=== PATIENT | male | born 1960 | race Caucasian/White ===

== ENCOUNTER 2022-03-22 17:41 | Emergency (ER) | payer OTHER, SELFPAY ==
[2022-03-22] VITALS (27 sets, daily range): BP systolic 103–134; BP diastolic 59–89; PULSE 68–122; RESP 12–22; TEMP 36.5; O2SAT 90–100
--- NOTE | ~2022-03-22 | MR_ITS ---
EXAMINATION: MR brain/brain stem wo/w con DATE: 03/26/2022 09:30 INDICATION: Leg weakness. Transient ischemic attack. TECHNIQUE: Magnetic resonance imaging (MRI) of the brain and brainstem was performed without and with 17 mL MultiHance intravenous contrast. COMPARISON: Head CT 03/22/2022 FINDINGS: There is an old infarct in right cerebellum. There is an old infarct in right parietal occi pital region. There is a small subacute infarct in right temporal occipital region with contrast enha ncement. There is no intracranial hemorrhage, acute infarction, or abnormal intracranial mass lesion. The ventricles are normal in size. There is mild mucosal thickening in the paranasal sinuses. The or bits are normal. The mastoid air cells are normal. IMPRESSION: 1. Small subacute infarct in right temporal occipital region. 2. Old infarcts in the right cerebellum and right parietal occipital region. Reviewed, dictated and finalized at location B.
--- NOTE | ~2022-03-22 | CT_ITS ---
Patient Name: Patient Name MR#: Patient MRN Accession#: Accession Numbers EXAMINATION: CTA brain carotid DATE: 03/22/2022 18:57 INDICATION: leg weakness TECHNIQUE: Computed tomographic angiography (CTA) of the head was performed without and with 100 mL O mnipaque-350 intravenous contrast. CTA of the neck was performed with intravenous contrast. The dose- length product was 1727.36 mGy-cm. Maximum intensity projection and volume rendered 3D-reconstruction s were created by the technologist on a separate workstation. COMPARISON: None. FINDINGS: CTA NECK: Aortic arch and proximal great vessels: Mild atherosclerotic calcifications at the visualized aortic arch and proximal great vessels, including mild stenoses at the origins of the bilateral carotids and right vertebral, and severe stenosis caused by calcified and noncalcified plaque at the origin of th e left vertebral artery. Right common carotid, carotid bifurcation, and internal carotid artery: Calcified and noncalcified pl aque at the carotid bulb and proximal ICA as well as focally within the distal ICA.There is 15%% sten osis of the proximal right internal carotid artery relative to normal distal artery lumen diameter (N ASCET criteria). Left common carotid, carotid bifurcation, and internal carotid artery: Calcified and noncalcified cruz que at the carotid bifurcation and focally in the distal ICA.There is 0% stenosis of the proximal lef t internal carotid artery relative to normal distal artery lumen diameter (NASCET criteria). Vertebral arteries: Severe left vertebral artery stenosis as above. Right vertebral artery is dominan t. Atherosclerotic calcifications of the intradural portions of the left and right vertebral arteries . Other findings: Heavy coronary artery calcification. CTA HEAD: Atherosclerotic calcifications in the distal internal carotid arteries and pronounced calcified calci fications in the bilateral carotid siphons, causing likely severe right and moderate left stenoses. S cattered vertebrobasilar calcifications. No large vessel occlusion, aneurysm, high flow vascular malformation, nidus or extravasation. No acute large vessel infarct, intracranial hemorrhage, mass, or hydrocephalus. CT BRAIN: No acute large vessel infarct. Old right parieto-occipital, possibly watershed territory, and focal r ight cerebellar infarcts. Mild chronic white matter change. No acute intracranial hemorrhage, extra-a xial fluid collection, mass lesion or mass effect, or hydrocephalus. IMPRESSION: 1. CTA head is negative for large vessel occlusion. 2. Heavy calcified plaque in the bilateral carotid siphons, causing likely severe right and moderate left distal internal carotid artery stenoses. 3. Old right parietal occipital and right cerebellar infarcts. 4. Severe left vertebral artery origin stenosis. Reviewed, dictated and finalized at location K. IMPRESSION: 1. CTA head is negative for large vessel occlusion. 2. Heavy calcified plaque in the bilateral carotid siphons, causing likely sev ere right and moderate left distal internal carotid artery stenoses. 3. Old right parietal occipital and right cerebellar infarcts. 4. Severe left vertebral artery origin stenosis.
--- NOTE | 2022-03-22 17:53 | ECG_ITS ---
Measurements Intervals [place] Rate: 111 P: 46 ME: 96 QRS: 57 QRSD: 97 T: 63 QT: 342 QTc: 465 Interpretive Statements SINUS TACHYCARDIA WITH SHORT ME INTERVAL MINIMAL Q WAVES- INFERIOR LEADS BORDERLINE ST-T WAVE ABNORMALITY- HIGH LATERAL LEADS ABNORMAL ECG Electronically Signed On 03-22-2022 20:34:43 CDT by El Faria D.O.
--- NOTE | 2022-03-22 18:07 | ED.NEUROSD ---
HPI - Neuro Symptoms/Deficit General Chief Complaint: Neuro Symptoms/Deficit <Sakina Mondragon MD - Last Filed: 03/22/22 18:46> Stated Complaint: mini strokes <Sakina Mondragon MD - Last Filed: 03/22/22 18:46> Time Seen by Provider: 03/22/22 17:58 <Sakina Mondragon MD - Last Filed: 03/22/22 18:46> History of Present Illness HPI Narrative: pt comes in with leg weakness both legs for the last 2 weeks on/off and has seen his work doc in the office in [facility] b/c started after bending over doing something at work adn passed out then legs weak/numbness then got better so ekg and has had extensive labs done for cardiac cbc, cmp, tsh and ekg all done and i reviewed his has all wnl and to have ct head next week but still having episodes on/off no defined trigger can be laying, sitting and just comes on and can't move legs then few minutes later movement returns adn no loss bowel or bladder function and always legs not speech or arms adn sometimes lt headed but no loc no hebert/cp/sob/f/uri/nv/d/urine chagnes or abd pain and NIH now 0 <Sakina Mondragon MD - Last Filed: 03/22/22 18:46> Related Data Home Medications: Home Medications Medication Instructions Recorded Confirmed lisinopril 10 mg PO ONCE 03/22/22 03/22/22 <Sakina Mondragon MD - Last Filed: 03/22/22 18:46> Allergies/Adverse Reactions: Allergies Allergy/AdvReac Type Severity Reaction Status Date / Time No Known Allergies Allergy Verified 03/22/22 18:11 <Sakina Mondragon MD - Last Filed: 03/22/22 18:46> Review of Systems Review of Systems: CONSTITUTIONAL: Denies fever, chills, or sweats. EYES: Denies visual changes, redness, or discharge. ENT: Denies rhinorrhea, congestion, sore throat, or otalgia. CARDIOVASCULAR: Denies chest pain, palpitations, or edema. RESPIRATORY: Denies cough or dyspnea. GASTROINTESTINAL: Denies abdominal pain, nausea, vomiting, or diarrhea. GENITOURINARY: Denies dysuria or hematuria. SKIN: Denies rash or itching. MUSCULOSKELETAL: Denies back pain, joint pain, or myalgia. NEUROLOGIC: Denies headache, intermittent numbness/weakness b/l le for last 2 weeks PSYCHIATRIC: Denies anxiety or depression. <Sakina Mondragon MD - Last Filed: 03/22/22 18:46> Exam Narrative: APPEARANCE: Well appearing, no pain in distress, well-nourished. Head normocephalic atraumtaic. EYES: PERRLA/EOMI, conjunctivae very clear. NOSE: Normal no drainage EARS:TMS clear Lavelle Bah, with good light reflex. THROAT: Pharynx clear, no exudate. NECK: Supple. No adenopathy, no masses. RESPIRATORY: Airway patent, repsirations nonlabored. Clear to auscultation bilaterally, no rales, rhonchi, wheezing. CARDIOVASCULAR: Regular rate and rhythm without murmurs rubs or gallops. ABDOMINAL: Soft, nontender, nondistended, no hepatosplenomegally MUSCULOSKELETAl: Moves all extremities. Strenght/ROM intact, No edema, No calf tenderness. NEURO: Alert. Cranial nerves II through XII intact. Good gait. Good coordination SKIN:: Warm, dry. Normal Color PSYCHIATRIC: Normal affect/mood, normal interaction with parents. <Sakina Mondragon MD - Last Filed: 03/22/22 18:46> Course Course Emergency Course: signing over pt to the night doc Dr Love <Sakina Mondragon MD - Last Filed: 03/22/22 18:46> 61-year-old male presents here with intermittent episodes of left-sided weakness/difficulty with speech, and leg weakness, that resolved in about 15 minutes, had 1 episode before he came here, signed out to me pending CTA. This shows some chronic infarcts, stenosis in vertebral and carotid arteries without anything critical, patient is currently NIH stroke scale of 0, however given these TIAs I did feel patient would benefit from admission, aspirin and Plavix and atorvastatin are ordered, however as we do not have neurology at this hospital, I did discuss case with neurology over at [facility] will accept the patient. <Amena Love MD - Last Filed: 03/23
[2022-03-22 18:35] LABS: Anion Gap 10 mmol/L (8-16); Blood Urea Nitrogen 21 mg/dL (9-20); Calcium 9.1 mg/dL (8.4-10.2); Carbon Dioxide 21 mmol/L (22-30); Chloride 108 mmol/L (98-107); Estimated CRCL calculation 62 ml/min; Estimated Glomerular Filt Rate > 60; Glucose 154 mg/dL (65-110); Potassium 4.5 mmol/L (3.4-5.0); Sodium 139 mmol/L (137-145)
--- NOTE | 2022-03-22 19:18 | PC.NURSE ---
Report received from Stacey RN. This nurse assumed care of patient at this time.
[2022-03-22] MEDS: ASPIRIN 81 MG CHEWABLE TABLET 324 MG PO (19:53)
[2022-03-22] MEDS: CLOPIDOGREL BISULFATE 300 MG TABLET PO (19:53)
[2022-03-22] MEDS: ATORVASTATIN 40 MG TABLET 80 MG PO (21:25)
[2022-03-23] VITALS (88 sets, daily range): BP systolic 107–161; BP diastolic 62–91; PULSE 64–113; RESP 10–24; TEMP 36.7; O2SAT 92–100
--- NOTE | 2022-03-23 14:42 | PC.NURSE ---
[facility] intake called and stated that [facility] is still at capacity and they will keep pt on the list.
--- NOTE | 2022-03-23 19:24 | PC.NURSE ---
Assumed care of pt at this time. Pt alert and upright, ambulatory to bathroom .
--- NOTE | 2022-03-23 21:03 | PC.NURSE ---
SPOKE TO TAMMY AT [facility] ([facility]) PATIENT ACCESS/TRANSFER LINE. PATIENT IS STILL ON WAITLIST. [facility] AT [facility]. DID NOT HAVE ENOUGH DISCHARGES TODAY TO ACCOMMODATE THE WAITLIST. HOPEFULLY THEY WILL HAVE A BED ON THURSDAY (03/24/2022).
[2022-03-23] MEDS: ASPIRIN 81 MG CHEWABLE TABLET 324 MG PO (22:07)
[2022-03-23] MEDS: ATORVASTATIN 40 MG TABLET 80 MG PO (22:08)
[2022-03-23] MEDS: CLOPIDOGREL BISULFATE 300 MG TABLET PO (22:08)
[2022-03-24] VITALS (55 sets, daily range): BP systolic 130–182; BP diastolic 66–96; PULSE 60–93; RESP 12–21; O2SAT 94–99
--- NOTE | 2022-03-24 01:18 | PC.NURSE ---
[facility] TRANSFER CENTER CALLED. [facility] REMAINS AT CAPACITY. PATIENT WILL REMAIN ON WAITLIST.
--- NOTE | 2022-03-24 05:13 | PC.NURSE ---
ED stretcher removed from room and replaced with hospital bed. Linens changed. Pt updated on POC, no request at this time.
[2022-03-24 07:19] LABS: Basophils Absolute Auto 0.1 K/mm3 (0.0-0.1); Basophils Percent Auto 0.7 % (0.2-1.2); Eosinophils Absolute Auto 0.4 K/mm3 (0-0.3); Eosinophils Percent Auto 3.6 % (0-4.4); Hematocrit 50.2 % (42.0-52.0); Hemoglobin 17.2 g/dL (14.0-18.0); Immature Granulocyte Absolute 0.04 K/mm3 (0.00-0.031); Immature Granulocyte Percent A 0.4 % (0-0.5); Lymphocytes Absolute Auto 2.87 K/mm3 (0.9-3.2); Lymphocytes Percent Auto 27.7 % (18.3-44.2); Mean Corpuscular HGB Conc 34.3 g/dl (32-36); Mean Corpuscular Hemoglobin 31.6 pg (26-34); Mean Corpuscular Volume 92.3 fl (80-100); Mean Platelet Volume 9.6 fl (7.4-10.4); Monocytes Absolute Auto 0.8 K/mm3 (0.1-0.6); Monocytes Percent Auto 7.2 % (2.6-8.5); Neutrophils Absolute Auto 6.3 K/mm3 (1.3-6.7); Neutrophils Percent Auto 60.4 % (45.5-73.1); Platelet Count Result 259 k/mm3 (150-375); Red Blood Count 5.44 M/mm3 (4.6-6.20); Red Cell Distribution Width 12.9 % (11.5-14.5); White Blood Count 10.4 K/mm3 (4.5-10.0)
[2022-03-24 07:27] LABS: Alanine Aminotransferase 26 U/L (6-50); Albumin Level 4.2 g/dL (3.5-5.1); Alkaline Phosphatase 79 U/L (38-126); Anion Gap 5 mmol/L (8-16); Aspartate Amino Transferase 30 U/L (17-59); Bilirubin,Total 0.5 mg/dL (0.2-1.3); Blood Urea Nitrogen 25 mg/dL (9-20); Calcium 8.8 mg/dL (8.4-10.2); Carbon Dioxide 27 mmol/L (22-30); Chloride 106 mmol/L (98-107); Estimated CRCL calculation 57 ml/min; Estimated Glomerular Filt Rate > 60; Glucose 104 mg/dL (65-110); Potassium 4.6 mmol/L (3.4-5.0); Sodium 138 mmol/L (137-145)
[2022-03-24 07:30] LABS: Prothrombin Time 13.1 Seconds (11.1-14.7)
--- NOTE | 2022-03-24 09:17 | PC.NURSE ---
per [facility] they are at capacity and will keep pt on list for admissions.
--- NOTE | 2022-03-24 16:48 | PC.NURSE ---
ordered pt meal tray at this time. Pt frustrated about the wait. Explained that we are waiting on a bed at [facility] and they are full at this time. Pt sitting up on the side of the bed.
--- NOTE | 2022-03-24 16:51 | PC.NURSE ---
Pt visitor on the phone pt insurance company stating we have been in the ED since Thursday and waiting for a bed a [facility] and they are saying there is no bed, what can we do, he could do this at home
--- NOTE | 2022-03-24 20:42 | PC.NURSE ---
Patient sitting in bed talking to on phone.
[2022-03-25] VITALS (45 sets, daily range): BP systolic 129–166; BP diastolic 67–97; PULSE 64–97; RESP 10–27; O2SAT 93–98
--- NOTE | 2022-03-25 04:01 | PC.NURSE ---
[facility] transfer center called. [facility] is still at capacity and the patient is still on the waitlist.
--- NOTE | 2022-03-25 04:56 | PC.NURSE ---
[facility] called for an update on the patient. they stated hopefully we can get him a bed sometime today if we get some discharges.
--- NOTE | 2022-03-25 08:45 | PCCCNOTE ---
Called by charge nurse regarding getting pre auth for MRI while in ED. Reaching out to get procedure codes and dx codes to call [employer] for auth.
--- NOTE | 2022-03-25 09:00 | PC.NURSE ---
[facility] transfer department called and wanted an update on pt.
[2022-03-25] MEDS: CLOPIDOGREL BISULFATE 75 MG TABLET PO (09:13)
--- NOTE | 2022-03-25 13:50 | PC.NURSE ---
[facility] transfer center called. No true update. Patient still on wait list to be transferred.
--- NOTE | 2022-03-25 16:28 | PCCCNOTE ---
[facility] called to attempt to get expedited auth for MRI of brain done. Dr. Agosto was able to speak with a rep at [facility] and an urgent request is now submitted. It can still take up to 24 hrs to process the request. Case # [id number] ; we can check portal for updates [facility] phone # [phone]
--- NOTE | 2022-03-25 16:42 | PC.NURSE ---
dinner tray ordered.
--- NOTE | 2022-03-26 04:11 | PC.NURSE ---
Spoke with Day from [facility] transfer center who informs me that they are still at capacity and will not have a bed for the pt at this time.
--- NOTE | 2022-03-26 07:24 | PC.NURSE ---
Patient report received from ONESIMO Gonzalez and ONESIMO Fernandez. All questions answered and care of patient assumed. Patient resting quietly in bed with eyes closed. Patient appears to be sleeping with regular, non-labored respirations. Will continue to address needs as they arise.
[2022-03-26 07:36] VITALS: PULSE 91
[2022-03-26 07:46] VITALS: PULSE 71; RESP 12
[2022-03-26 07:57] VITALS: BP 149/87; PULSE 79; RESP 19; O2SAT 94
[2022-03-26] MEDS: CLOPIDOGREL BISULFATE 75 MG TABLET PO (08:32)
--- NOTE | 2022-03-26 09:04 | PC.NURSE ---
Patient report given to ONESIMO Hobbs. All questions answered and care of patient transferred.
[2022-03-26] MEDS: lisinopriL 10 MG TABLET PO (10:30)
[2022-03-26 10:36] VITALS: BP 157/66; PULSE 77; RESP 16; O2SAT 100
--- NOTE | 2022-03-26 11:10 | PC.NURSE ---
Care assumed of pt at this time. Pt is laying on stretcher. Pt states he was made aware of MRI results by provider. Pt is awaiting transfer to neurology center. Pt denies any requests at this time.
--- NOTE | 2022-03-26 11:41 | PC.NURSE ---
[facility] access line update with new pt information. Made aware of new results.
--- NOTE | 2022-03-26 11:47 | PC.NURSE ---
meal tray ordered.
[2022-03-26 13:30] VITALS: BP 129/73; PULSE 87; RESP 16; O2SAT 95
[2022-03-26 16:23] VITALS: BP 140/69; PULSE 88; RESP 18; O2SAT 98
== END 2022-03-26 16:37 | disposition home or self-care (01) ==
PROVIDERS: Emergency Medicine; Emergency Provider Emergency Medicine
DX: I63.9 Cerebral infarction, unspecified (principal); R53.1 Weakness; R00.0 Tachycardia, unspecified; R94.31 Abnormal electrocardiogram [ECG] [EKG]; I65.02 Occlusion and stenosis of left vertebral artery
CPT/HCPCS: 36415; 70496; 70498; 70553; 80048; 80053; 85025; 85610; 85730; 93005; 99284; A9270; A9577; Q9967